=== PATIENT | male | born 1985 | race Caucasian/White ===

== ENCOUNTER 2020-08-18 03:37 | Emergency (ER) | payer OTHER, SELFPAY ==
[2020-08-18] MEDS ORDERED: Ketorolac Tromethamine 30 MG/ML VIAL ONE (04:53)
[2020-08-18] MEDS ORDERED: Iopamidol-370 76% 500 ML 1 ML ONE (11:05)
== END 2020-08-18 05:25 | disposition home or self-care (01) ==
LOC: ERS 03:37
DX: S30.1XXA Contusion of abdominal wall, initial encounter (principal); M54.5 Low back pain; M54.6 Pain in thoracic spine; V57.5XXA Driver of pick-up truck or van injured in collision with fixed or stationary object in traffic accident, initial encounter
CPT/HCPCS: 71260; 74177; 96374; G0390; J1885; Q9967

== ENCOUNTER 2020-11-09 11:51 | Emergency (ER) | payer SELFPAY ==
[~2020-11-09 11:51] MED LIST: Iopamidol-370 76% 500 ML 1 ML ONE
[2020-11-09 13:09] LABS: #Lymphocytes 0.6 thou/uL (1.20-3.40); #Monocytes 0.2 thou/uL (0.11-0.59); #Neutrophils 4.9 thou/uL (1.40-6.50); %Basophils 0.7 % (0.0-1.0); %Eosinophils 0.2 % (0.0-10.0); %Lymphocytes 10.4 % (21.0-51.0); %Monocytes 3.5 % (0.0-10.0); %Neutrophils 85.3 % (42.0-75.0); Hemoglobin 14.3 g/dL (14.0-18.0); Mean Corpuscular HGB CONC 33.4 g/dL (32.0-36.0); Mean Corpuscular Hemoglobin 29.9 pg (27.0-31.0); Mean Corpuscular Volume 89.4 fL (78.0-98.0); Mean Platelet Volume 6.6 fL (7.4-10.4); Platelet Count 176 thou/uL (130-400); RBC Distribution Width 12.3 % (11.5-14.5); Red Blood Cell (RBC) Count 4.78 mill/uL (4.70-6.10); White Blood Cell (WBC) Count 5.8 thou/uL (4.8-10.8)
[2020-11-09 13:26] LABS: Albumin 4.1 g/dL (3.5-5.0); Anion Gap 14 mmol/L (10-20); BUN (Urea Nitrogen) 17 mg/dL (8.9-20.6); Bilirubin, Total 1.6 mg/dL (0.2-1.2); Calc. Creatinine Clearance 0 mL/min (70-130); Calcium 8.6 mg/dL (7.8-10.44); Carbon Dioxide 25 mmol/L (22-29); Chloride 100 mmol/L (98-107); Glucose 154 mg/dL (70-105); Potassium 4.1 mmol/L (3.5-5.1); Protein, Total 7.1 g/dL (6.0-8.3); Sodium 135 mmol/L (136-145)
[2020-11-09 13:27] LABS: ALT (SGPT) 100 U/L (8-55); AST (SGOT) 71 U/L (5-34); Alkaline Phosphatase 77 U/L (40-110)
== END 2020-11-09 15:00 | disposition home or self-care (01) ==
LOC: ERS 11:51
DX: U07.1 COVID-19 (principal); R51.9 Headache, unspecified; M54.9 Dorsalgia, unspecified; R19.7 Diarrhea, unspecified
CPT/HCPCS: 36415; 71045; 71275; 80053; 85025; 93005; Q9967